=== PATIENT | male | born 1980 | race Caucasian/White ===

== ENCOUNTER 2016-11-06 01:37 | Emergency (ER) | payer MEDICAID ==
[2016-11-06 01:39] VITALS: BP 137/76; PULSE 92; RESP 16; TEMP 98.2; O2SAT 99
[2016-11-06] MEDS ORDERED: SODIUM CHLOR 0.9% 1000 ML INJ 1,000 ML IV SCH (02:24)
[2016-11-06] MEDS ORDERED: ONDANSETRON HCL 4 MG/2 ML VIAL IVP ONE (02:30)
[2016-11-06] MEDS ORDERED: MORPHINE SULFATE 4 MG/ML INJ IV PUSH ONE (02:30)
[2016-11-06] MEDS ORDERED: SODIUM CHLORIDE 0.9% FLUSH 10 ML FLUSH IV FLUSH PRN (02:30)
[2016-11-06] MEDS ORDERED: IOHEXOL 350 MG/ML 10 ML VIAL (for RAD DIAG) IV ONE (03:00)
[2016-11-06 03:01] LABS: AUTOMATED NEUTROPHIL # 6.9 TH/MM3 (1.8-7.7); BASOPHIL % 0.2 % (0.0-2.0); EOSINOPHIL # 0.2 TH/MM3 (0-0.4); HEMO FLAGS DIFF FINAL; LYMPH % 21.5 % (9.0-44.0); LYMPHOCYTE # 2.2 TH/MM3 (1.0-4.8); MEAN CELL VOLUME 84.8 FL (80.0-100.0); MEAN CORPUSCULAR HEMOGLOBIN 29.6 PG (27.0-34.0); MEAN CORPUSCULAR HGB CONC 34.9 % (32.0-36.0); MONO % 7.4 % (0.0-8.0); NEUT % 68.9 % (16.0-70.0); PLATELET COUNT 186 TH/MM3 (150-450); RED BLOOD COUNT 5.19 MIL/MM3 (4.50-5.90); RED CELL DISTRIBUTION WIDTH 12.6 % (11.6-17.2); WHITE BLOOD COUNT 10.1 TH/MM3 (4.0-11.0)
[2016-11-06 03:18] LABS: PROTHROMBIN TIME - PATIENT 11.1 SEC (9.8-11.6)
--- NOTE | 2016-11-06 03:18 | RADRPT ---
EXAM DATE/TIME: 11/06/2016 02:56 [place] COMPARISON: No previous studies available for comparison. INDICATIONS : Lower right quadrant pain X 3 days. IV CONTRAST: 96 cc Omnipaque 350 (iohexol) IV ORAL CONTRAST: No oral contrast ingested. RADIATION DOSE: 5.61 CTDIvol (mGy) MEDICAL HISTORY : None SURGICAL HISTORY : None. ENCOUNTER: Initial ACUITY: 3 days PAIN SCALE: 6/10 LOCATION: Right lower quadrant TECHNIQUE: Volumetric scanning of the abdomen and pelvis was performed. Using automated exposure control and ad justment of the mA and/or kV according to patient size, radiation dose was kept as low as reasonably achievable to obtain optimal diagnostic quality images. FINDINGS: LOWER LUNGS: The visualized lower lungs are clear. LIVER: Homogeneous density without lesion. There is no dilation of the biliary tree. No calcified gallston es. There is mild hepatic steatosis. SPLEEN: Normal size without lesion. PANCREAS: Within normal limits. KIDNEYS: Normal in size and shape. There is no mass, stone or hydronephrosis. ADRENAL GLANDS: Within normal limits. VASCULAR: There is no aortic aneurysm. BOWEL/MESENTERY: No oral contrast was given limiting the sensitivity of the exam. The stomach, small bowel, and colon demonstrate no acute abnormality. There is no free intraperitoneal air or fluid. There is a normal a ppendix. ABDOMINAL WALL: Within normal limits. RETROPERITONEUM: There is no lymphadenopathy. BLADDER: No wall thickening or mass. REPRODUCTIVE: Within normal limits. INGUINAL: There is no lymphadenopathy or hernia. MUSCULOSKELETAL: Within normal limits for patient age. CONCLUSION: 1. Unremarkable bowel gas pattern with no inflammatory change. There is a normal appendix. 2. Mild steatosis of the liver. Brendan Pappas MD on November 06, 2016 at 3:15 Board Certified Radiologist. This report was verified electronically.
[2016-11-06 03:21] LABS: BICARBONATE 29.5 MEQ/L (21.0-32.0); POTASSIUM 3.8 MEQ/L (3.5-5.1)
[2016-11-06 03:23] LABS: INDIRECT BILIRUBIN 0.5 MG/DL (0.0-0.8); TOTAL BILIRUBIN ADULT 0.6 MG/DL (0.2-1.0)
[2016-11-06 04:30] LABS: BLOOD, URINE NEG (NEG); GLUCOSE,URINE NEG (NEG); KETONE, URINE NEG (NEG); NITRITE,URINE NEG (NEG); URINE COLOR YELLOW (YELLW/STRAW)
[2016-11-06 04:34] LABS: COMMENT (UR) CULT NOT INDICATED; CULTURE IF INDICATED CULT NOT INDICATED
--- NOTE | 2016-11-06 04:44 | PD ---
HPI Chief Complaint: Abdominal Pain Time Seen by Provider: 02:20 Travel History International Travel<30 days: No Contact w/Intl Traveler<30days: No Traveled to known affect area: No History of Present Illness HPI Patient is a 35-year-old male comes in complaining of right lower quadrant abdominal pain. He says he has had the pain since Monday, but it got worse tonight so he came in. He has not had any nausea or vomiting. He reports slight decrease in appetite. He had one episode of diarrhea, but otherwise has been having small bowel movements. He has not had any fever or chills. He says he looked on the Internet and was worried about his appendix or gallbladder. [facility] Past Medical History Medical History: Denies Significant Hx Diminished Hearing: No Tetanus Vaccination: Unknown Past Surgical History Surgical History: No Previous Surgery Social History Alcohol Use: Yes (OCC (2 MIXED DRINKS TONIGHT)) Tobacco Use: No Substance Use: No Allergies-Medications (Allergen,Severity, Reaction): Coded Allergies: No Known Allergies (Verified , 11/06/16) Reported Meds & Prescriptions Reported Meds & Active Scripts Active No Active Prescriptions or Reported Medications Review of Systems Except as stated in HPI: all other systems reviewed are Neg General / Constitutional: No: Fever, Chills HENT: No: Headaches, Lightheadedness Cardiovascular: No: Chest Pain or Discomfort Respiratory: No: Shortness of Breath Gastrointestinal: Positive: Abdominal Pain, No: Nausea, Vomiting Genitourinary: No: Dysuria Skin: No Rash, No Change in Pigmentation Neurologic: No: Weakness, Dizziness Physical Exam Narrative GENERAL: Awake and alert, in no acute distress. SKIN: Focused skin assessment warm/dry. HEAD: Atraumatic. Normocephalic. EYES: Pupils equal and round. No scleral icterus. ENT: Mucous membranes pink and moist. NECK: Trachea midline. No JVD. CARDIOVASCULAR: Regular rate and rhythm. No murmur appreciated. RESPIRATORY: No accessory muscle use. Clear to auscultation. Breath sounds equal bilaterally. GASTROINTESTINAL: Abdomen soft, nondistended. Mild right lower quadrant tenderness to palpation. No rebound or guarding. MUSCULOSKELETAL: No obvious deformities. No clubbing. No cyanosis. No edema. NEUROLOGICAL: Awake and alert. No obvious cranial nerve deficits. Motor grossly within normal limits. Normal speech. PSYCHIATRIC: Appropriate mood and affect; insight and judgment normal. Data Data Last Documented VS Vital Signs Date Time Temp Pulse Resp B/P Pulse Ox O2 Delivery O2 Flow Rate FiO2 11/06/16 01:39 98.2 92 16 137/76 99 Room Air Orders Basic Metabolic Panel (Bmp) (11/06/16 02:24) Complete Blood Count With Diff (11/06/16 02:24) Lipase (11/06/16 02:24) Prothrombin Time / Inr (Pt) (11/06/16 02:24) Act Partial Throm Time (Ptt) (11/06/16 02:24) Urinalysis - C+S If Indicated (11/06/16 02:24) Ua Includes Microscopic (11/06/16 02:24) Ct Abd/Pel W Iv Contrast(Rout) (11/06/16 02:24) Iv Access Insert/Monitor (11/06/16 02:24) Ecg Monitoring (11/06/16 02:24) Oximetry (11/06/16 02:24) Morphine Inj (Morphine Inj) (11/06/16 02:30) Ondansetron Inj (Zofran Inj) (11/06/16 02:30) Sodium Chlor 0.9% 1000 Ml Inj (Ns 1000 M (11/06/16 02:24) Sodium Chloride 0.9% Flush (Ns Flush) (11/06/16 02:30) Hepatic Functional Panel (11/06/16 02:24) Iohexol 350 Inj (Omnipaque 350 Inj) (11/06/16 03:00) Labs Laboratory Tests Test 11/06/16 11/06/16 02:50 04:10 White Blood Count 10.1 TH/MM3 Red Blood Count 5.19 MIL/MM3 Hemoglobin 15.4 GM/DL Hematocrit 44.0 % Mean Corpuscular Volume 84.8 FL Mean Corpuscular Hemoglobin 29.6 PG Mean Corpuscular Hemoglobin 34.9 % Concent Red Cell Distribution Width 12.6 % Platelet Count 186 TH/MM3 Mean Platelet Volume 8.7 FL Neutrophils (%) (Auto) 68.9 % Lymphocytes (%) (Auto) 21.5 % Monocytes (%) (Auto) 7.4 % Eosinophils (%) (Auto) 2.0 % Basophils (%) (Auto) 0.2 % Neutrophils # (Auto) 6.9 TH/MM3 Lymphocytes # (Auto) 2.2 TH/MM3 Monocytes # (Auto) 0.7 TH/MM3 Eosinophils # (Auto) 0.2 TH/MM3 Basophils # (Auto) 0.0 TH/MM3 CBC Comment DIFF FINAL Differential Comment Prothrombin Time 11.1 SEC Prothromb Time International 1.0 RATIO Ratio Activated Partial 28.0 SEC Thromboplast Time Sodium Level 140 MEQ/L Potassium Level 3.8 MEQ/L Chloride Level 105 MEQ/L Carbon Dioxide Level 29.5 MEQ/L Anion Gap 6 MEQ/L Blood Urea Nitrogen 16 MG/DL Creatinine 1.06 MG/DL Estimat Glomerular Filtration 80 ML/MIN Rate Random Glucose 86 MG/DL Calcium Level 9.3 MG/DL Total Bilirubin 0.6 MG/DL Direct Bilirubin 0.1 MG/DL Indirect Bilirubin 0.5 MG/DL Aspartate Amino Transf 11 U/L (AST/SGOT) Alanine Aminotransferase 24 U/L (ALT/SGPT) Alkaline Phosphatase 65 U/L Total Protein 7.2 GM/DL Albumin 4.3 GM/DL Lipase 127 U/L Urine Color YELLOW Urine Turbidity CLEAR Urine pH 6.0 Urine Specific [place] 1.027 Urine Protein NEG mg/dL Urine Glucose (UA) NEG mg/dL Urine Ketones NEG mg/dL Urine Occult Blood NEG Urine Nitrite NEG Urine Bilirubin NEG Urine Urobilinogen LESS THAN 2.0 MG/DL Urine Leukocyte Esterase NEG Urine RBC LESS THAN 1 /hpf Urine WBC LESS THAN 1 /hpf Microscopic Urinalysis Comment CULT NOT INDICATED MDM Medical Decision Making Medical Screen Exam Complete: Yes Emergency Medical Condition: Yes Differential Diagnosis Appendicitis versus colitis versus diverticulitis versus muscle strain versus constipation versus UTI Narrative Course Patient is a 35-year-old male comes in complaining of right lower quadrant abdominal pain. Exam shows mild right lower quadrant tenderness on palpation. IV established, labs sent. Labs show no acute abnormalities. CT of the abdomen and pelvis performed shows no acute abnormalities, appendix is within normal limits. Patient given IV fluids, morphine, Zofran. He reports feeling better. Patient advised to take MiraLAX is a lot of stool was seen in his colon. Advised to take ibuprofen for pain. Advised this is likely muscular. He is advised to follow-up with a primary care doctor. Advised to return to the ED as needed for any worsening symptoms. Diagnosis Primary Impression: Abdominal pain Qualified Code: R10.31 - Right lower quadrant abdominal pain Patient Instructions: Abdominal Pain (ED), General Instructions Additional Instructions: Follow-up with a primary care doctor. Take MiraLAX for constipation. Take ibuprofen as needed for pain. Return to the ED as needed for any worsening symptoms. Scripts No Active Prescriptions or Reported Meds Disposition: 01 DISCHARGE HOME Condition: Stable Kathy Carlson MD Nov 06, 2016 04:44
[2016-11-06 05:01] VITALS: RESP 16
== END 2016-11-06 05:03 | disposition home or self-care (01) ==
LOC: NEPC 01:37
DX: R10.31 Right lower quadrant pain (principal)
CPT/HCPCS: 74177; 80048; 80076; 81001; 83690; 85025; 85610; 85730; 96361; 96374; 96375; 99285; J2270; J2405; J7030; Q9967